=== PATIENT | male | born 1950 | race Caucasian/White ===

== ENCOUNTER 2021-08-27 07:58 | Observation (INO) | payer BC, MEDICARE ==
[~2021-08-27] VITALS: Ht 175.3 cm; Wt 82.6 kg
[2021-08-27] MEDS ORDERED: KETOROLAC TROMETHAMINE 30 MG/ML VIAL IV STA (08:11)
[2021-08-27] MEDS ORDERED: SODIUM CHLORIDE 0.9% 1000ML 1,000 ML IV STA (08:11)
[2021-08-27] MEDS ORDERED: ONDANSETRON HCL INJ 2MG/ML 2ML 2 MG/ML VIAL IV STA (08:11)
[2021-08-27 08:28] LABS: BASOPHILS % 0.1 % (0.0-1.0); EOSINOPHILS % 0.2 % (0.0-6.0); HEMATOCRIT 44.3 % (38.2-49.6); HEMOGLOBIN 14.9 g/dL (14.0-18.0); LYMPHOCYTES # (AUTO) 0.9 (1.0-3.2); LYMPHOCYTES % 8.8 % (18.0-39.1); MEAN CORPUSCULAR HGB CONC 33.6 g/dL (31-35); MEAN CORPUSCULAR VOLUME 89.1 fL (81-99); MONOCYTES # (AUTO) 0.7 (0.2-0.8); MONOCYTES % 6.7 % (4.4-11.3); NEUTROPHILS # (AUTO) 8.1 (2.1-6.9); NEUTROPHILS % 83.7 % (38.7-80.0); PLATELET COUNT 212 x10e3/uL (140-360); RED BLOOD COUNT 4.97 x10e6/uL (4.3-5.7); RED CELL DISTRIBUTION WIDTH 12.5 % (11.7-14.4)
[2021-08-27 08:48] LABS: INR 0.95; PROTHROMBIN TIME 13.5 seconds (11.9-14.5)
[2021-08-27 08:49] LABS: ALANINE AMINOTRANSFERASE 143 IU/L (0-55); ALBUMIN 2.9 g/dL (3.5-5.0); ALBUMIN/GLOBULIN RATIO 0.7 (0.8-2.0); ALKALINE PHOSPHATASE 75 IU/L (40-150); ANION GAP 16.7 mmol/L (8-16); BLOOD UREA NITROGEN 14 mg/dL (7-26); BUN/CREATININE RATIO 13 (6-25); CALCIUM 8.3 mg/dL (8.4-10.2); CARBON DIOXIDE 26 mmol/L (22-29); CHLORIDE 98 mmol/L (98-107); CREATINE KINASE 177 IU/L (30-200); CREATININE, SERUM 1.11 mg/dL (0.72-1.25); GLUCOSE 128 mg/dL (74-118); PARTIAL THROMBOPLASTIN TIME 32.9 seconds (23.8-35.5); POTASSIUM 3.7 mmol/L (3.5-5.1); SODIUM 137 mmol/L (136-145)
[2021-08-27] MEDS ORDERED: IOPAMIDOL 370 MG/ML 100 ML INFUS..BTL INJ ONE (09:31)
[2021-08-27] MEDS ORDERED: ENOXAPARIN INJ 80 MG/0.8 ML SYR SC ONE (09:45)
[2021-08-27] MEDS ORDERED: CEFTRIAXONE 1 GM VIAL ONE (10:20)
[2021-08-27] MEDS: HYDROCORTISONE SOD SUCCINATE 100 MG VIAL IV SCH (10:22)
[2021-08-27] MEDS ORDERED: DEXAMETHASONE SOD PHOS 10 MG/1 ML VIAL IV SCH (10:30)
[2021-08-27] MEDS ORDERED: IBUPROFEN 600 MG TAB PO PRN (11:00)
[2021-08-27] MEDS ORDERED: ONDANSETRON HCL INJ 2MG/ML 2ML 2 MG/ML VIAL IV PRN ×2 (11:00)
[2021-08-27] MEDS ORDERED: FAMOTIDINE 20 MG/2 ML VIAL IV SCH (12:00)
[2021-08-27 12:59] VITALS: BP 109/59
[2021-08-27 13:10] VITALS: BP 109/59
[2021-08-27] MEDS ORDERED: DIPHENHYDRAMINE HCL INJ 50 MG/ML VIAL IV ONE (14:00)
[2021-08-27] MEDS: DIPHENHYDRAMINE HCL INJ 50 MG/ML VIAL IV ONE ×2 (14:54→14:59)
[2021-08-27 16:04] VITALS: BP 118/68
[2021-08-27 16:55] LABS: CREATINE KINASE 149 IU/L (30-200)
[2021-08-27] MEDS ORDERED: ZITHROMAX500 MG PO (18:50)
[2021-08-27] MEDS ORDERED: BENZONATATE200 MG PO (18:51)
[2021-08-28] MEDS ORDERED: AZITHROMYCIN 250 MG TAB PO SCH (09:00)
== END 2021-08-27 20:22 | disposition home or self-care (01) ==
LOC: ER 08:12 → ERHOLD 10:55 → MED/SURG3 12:32
PROVIDERS: ADMIT Internal Medicine; ATTEND Internal Medicine
DX: U07.1 COVID-19 (principal); R07.81 Pleurodynia; R79.1 Abnormal coagulation profile; J12.82 Pneumonia due to coronavirus disease 2019
CPT/HCPCS: 36415; 71045; 71260; 80053; 82550; 82553; 83735; 83880; 84484; 85025; 85379; 85610; 85730; 93005; 94799; 99284; G0378; J0456; J0696; J1100; J1200; J1650; J1720; J1885; J2405; J7030; J7050; Q9967; U0002

== ENCOUNTER 2022-07-17 15:52 | Emergency (ER) | payer MEDICARE ==
[~2022-07-17 15:52] MED LIST: AMLODIPINE BESYL5 MG PO; BENZONATATE200 MG PO; LOPRESSOR25 MG PO; PANTOPRAZOLE SO40 MG PO; ULTRAM50 MG PO; ZITHROMAX500 MG PO; [UNRECOGNIZED DRUG - OTHER] PO
== END 2022-07-17 16:10 | disposition left against medical advice (07) ==
LOC: FSED 16:00
DX: S49.91XA Unspecified injury of right shoulder and upper arm, initial encounter (principal)

== ENCOUNTER 2022-07-17 16:38 | Emergency (ER) | payer MEDICARE ==
[~2022-07-17] VITALS: Ht 175.3 cm; Wt 66.2 kg
[2022-07-17] MEDS ORDERED: TETANUS/DIPHTHERIA TOX ADULT 0.5 ML SYR IM ONE ×2 (16:45→17:00)
[2022-07-17] MEDS ORDERED: BACITRACIN/POLYMYXIN 30 GM OINT TP ONE (17:30)
[2022-07-17 17:32] VITALS: BP 147/73; PULSE 67; RESP 16; TEMP 98.4; O2SAT 98
== END 2022-07-17 17:30 | disposition home or self-care (01) ==
LOC: MERGE 16:43 → ER 16:43
DX: S50.811A Abrasion of right forearm, initial encounter (principal); Z23 Encounter for immunization; W20.8XXA Other cause of strike by thrown, projected or falling object, initial encounter
CPT/HCPCS: 90471; 90714; 99283